=== PATIENT | female | born 1965 | race Caucasian/White ===

== ENCOUNTER → 2021-12-17 | Outpatient (CLI) | payer MEDICAID ==
[~2021-12-17] MED LIST: DIXL10 PO; FLUT15.844 BOTHNSTRLS; FLUT1DIS2 IH; LORA10TA7 PO; METF-414 PO; MONT10TA21 PO; OMEP20CA14 PO; POLY15DR31 BOTHEYE; PREG50CA PO
== END | disposition home or self-care (01) ==
LOC: LAB 08:28
PROVIDERS: ATTEND Surgery
DX: Z01.812 Encounter for preprocedural laboratory examination (principal); Z20.822 Contact with and (suspected) exposure to COVID-19
CPT/HCPCS: 87426

== ENCOUNTER → 2021-12-18 | Day surgery (SDC) | payer MEDICAID ==
[~2021-12-18] VITALS: Ht 167.6 cm; Wt 86.2 kg
[~2021-12-18] MED LIST changes: +BUPIVACAINE HCL 0.5% (5MG/ML) 50ML ONE; +BUPIVACAINE HCL/PF 0.5% (5MG/ML) 10ML ONE; +DEXAMETHASONE 4MG/ML 1ML VIAL ONE; +EPHEDRINE SULFATE 50MG/ML VIAL ONE; +FENTANYL CITRATE/PF 50MCG/ML 2ML VIAL ONE; +FENTANYL CITRATE/PF 50MCG/ML 5ML VIAL ONE; +GLYCOPYRROLATE 0.2 MG/ML 2ML VIAL ONE; +HYDROCODONE/ACETAMINOPHEN 5/325MG TABLET PO PRN; +HYDROMORPHONE HCL/PF 2MG/ML CPJ IV PRN; +KETOROLAC 30MG/ML VIAL ONE; +MEPERIDINE HCL/PF 25MG/ML CPJ IV PRN; +METOCLOPRAMIDE HCL 10MG/2ML VIAL IV PRN; +METOCLOPRAMIDE HCL 10MG/2ML VIAL ONE; +MIDAZOLAM HCL 2 MG/2 ML VIAL ONE; +ONDANSETRON HCL 4MG/2ML INJ IV PRN; +ONDANSETRON HCL 4MG/2ML INJ ONE; +PROPOFOL 200MG/20ML VIAL IV ONE; +ROCURONIUM BROMIDE 10MG/ML VIAL 5ML IV ONE; +SODIUM CHLORIDE 0.9% 1,000 ML IV SCH
[2021-12-18 15:23] VITALS: BP 139/43
== END | disposition home or self-care (01) ==
LOC: OR 06:48
PROVIDERS: ATTEND Surgery
DX: K43.2 Incisional hernia without obstruction or gangrene (principal); E11.9 Type 2 diabetes mellitus without complications; K21.9 Gastro-esophageal reflux disease without esophagitis; F41.9 Anxiety disorder, unspecified; Z79.84 Long term (current) use of oral hypoglycemic drugs; Z79.899 Other long term (current) drug therapy; Z98.890 Other specified postprocedural states
CPT/HCPCS: 49565; 49568; 82962; 88302; C1781; J1100; J1170; J1885; J2250; J2405; J2704; J2765; J3010; J3490